=== PATIENT | male | born 1970 | race African-American/Black ===

== ENCOUNTER 2016-11-18 14:00 | Emergency (ER) | payer OTHER, MEDICAID ==
[~2016-11-18] VITALS: Ht 172.7 cm; Wt 91.0 kg
[~2016-11-18 14:00] MED LIST: LISI10TA5 PO; ZANTAC
[2016-11-18 14:48] VITALS: BP 125/87
[2016-11-18] MEDS ORDERED: TRAMADOL 50MG TABLET PO ONE (15:45)
== END 2016-11-18 16:16 | disposition home or self-care (01) ==
LOC: ER 16:10
DX: M25.512 Pain in left shoulder (principal); I10 Essential (primary) hypertension; K21.9 Gastro-esophageal reflux disease without esophagitis; Z88.0 Allergy status to penicillin
CPT/HCPCS: 99283